=== PATIENT | male | born 1975 | race Caucasian/White ===

== ENCOUNTER 2021-03-08 07:10 | Emergency (ER) | payer MEDICAID ==
[~2021-03-08] VITALS: Ht 172.7 cm; Wt 130.2 kg
[2021-03-08 07:10] VITALS: BP_SYST 135
[2021-03-08 07:28] VITALS: BP_SYST 135
[2021-03-08] MEDS ORDERED: LIDOCAINE 1%, 20 ML MDV 20 ML ONE (07:42)
[2021-03-08] MEDS ORDERED: LIDOCAINE MPF 1% 50 MG/5 ML AMP INJ ONE (07:45)
[2021-03-08] MEDS ORDERED: CEPH250C PO (08:14)
== END 2021-03-08 08:37 | disposition home or self-care (01) ==
LOC: SED 07:10
DX: L02.31 Cutaneous abscess of buttock (principal); I10 Essential (primary) hypertension
CPT/HCPCS: 10060; 99283; J2001

== ENCOUNTER 2021-06-16 08:05 | Emergency (ER) | payer MEDICAID ==
[~2021-06-16] VITALS: Ht 175.3 cm; Wt 127.0 kg
[2021-06-16 08:05] VITALS: BP_SYST 126
[~2021-06-16 08:05] MED LIST: CEPH250C PO
--- NOTE | 2021-06-16 08:14 | NUR ---
PT PLACED IN BED 6. REPORT TO ALEJANDRO
--- NOTE | 2021-06-16 08:16 | NUR ---
MD JIMENEZ AT BEDSIDE ASSESSING PT.
--- NOTE | 2021-06-16 08:18 | NUR ---
RN NOTES PT WITH BEGININNG OF A RED AREA , RESEMBLING AN ABCESS. PT STATED AND SHOWED RN AN AREA OF A PREVIOUS ABCESS NEAR SAME AREA. PT STATES HE IS A [employer] AND IS SITTING AND SEAT BELT RUBS THAT AREA MUCH. PT STATES HE WANTED TO COME IN BEFORE IT GETS TO BAD.
[2021-06-16] MEDS ORDERED: LIDOCAINE/EPI 2% 1:100000 20 ML VIAL INJ ONE (08:34)
[2021-06-16] MEDS ORDERED: IBUP-1969 PO (08:49)
[2021-06-16] MEDS ORDERED: SULF1TAB48 PO (08:49)
--- NOTE | 2021-06-16 09:10 | NUR ---
MD JIMENEZ HAS PERFORMED A MINMAL I AND D PROCEDURE. ONLY GETTING 2 DROPS OF PUS. RN COLLECTED AND SENT TO LAB FOR CX. PT IS NOW BEING PREPARED FOR DC HOME.
[2021-06-16 09:19] VITALS: BP_SYST 126
--- NOTE | 2021-06-16 09:20 | NUR ---
Patient given written and verbal discharge instructions and verbalizes understanding. ER MD discussed with patient the results and treatment provided. Patient in stable condition. ID arm band removed. no active bleeding. Rx of Bactrim DS given. Patient educated on pain management and to follow up with PMD. Pain Scale 0/10. Opportunity for questions provided and answered. Medication side effect fact sheet provided.
== END 2021-06-16 09:20 | disposition home or self-care (01) ==
LOC: SED 08:05
DX: L02.31 Cutaneous abscess of buttock (principal); L03.317 Cellulitis of buttock; I10 Essential (primary) hypertension; Z79.899 Other long term (current) drug therapy
CPT/HCPCS: 87070-TC; 87075-TC; 99283